=== PATIENT | male | born 1995 | race Caucasian/White ===

== ENCOUNTER 2019-01-01 11:25 | Emergency (ER) | payer BC ==
[~2019-01-01] VITALS: Ht 182.9 cm; Wt 113.6 kg
[2019-01-01 11:37] VITALS: Ht 182.9 cm; Wt 113.6 kg
[2019-01-01 12:02] LABS: APPEARANCE CLEAR (CLEAR); BILIRUBIN NEGATIVE (NEGATIVE); COLOR YELLOW (YELLOW); GLUCOSE NEGATIVE (NEGATIVE); KETONE SMALL mg/dL (NEGATIVE); NITRITE NEGATIVE (NEGATIVE); PROTEIN NEGATIVE (NEGATIVE); UROBILINOGEN NORMAL (NORMAL)
[2019-01-01 12:05] LABS: BASOPHILS 0.2 % (0-2); EOSINOPHILS 1.1 % (0-7); HEMATOCRIT 49.5 % (42.0-54.0); HEMOGLOBIN 17.4 g/dL (13.5-17.5); IMMATURE GRANULOCYTES 0.1 % (0-5); LYMPHOCYTES 23.8 % (15-50); MCH 29.9 pg (26.0-34.0); MCHC 35.2 g/dL (31.0-37.0); MCV 85.2 fL (80.0-100.0); MEAN PLATELET VOLUME 10.4 fL (7.4-10.4); MONOCYTES 7.6 % (2-11); NEUTROPHILS 67.2 % (40-80); PLATELET COUNT 317 10x3/uL (130-400); RBC 5.81 10x6/uL (4.20-6.10); RDW 12.5 % (11.5-14.5); WBC 8.4 10x3/uL (4.8-10.8)
[2019-01-01 12:16] LABS: CALC OSMOLALITY 277 mosm/kg (275-300); CALCIUM 9.4 mg/dL (8.5-10.1); CARBON DIOXIDE 25.3 mmol/L (21.0-32.0); CHLORIDE - SERUM 101 mmol/L (98-107); CREATININE - SERUM 1.1 mg/dL (0.6-1.3); GLUCOSE 110 mg/dL (74-106); POTASSIUM - SERUM 3.8 mmol/L (3.5-5.1); SODIUM 138 mmol/L (136-145); UREA NITROGEN 14 mg/dL (7-18); eGFR NON AFRICAN AMERICAN 87 mL/min (90-120)
[2019-01-01 12:21] LABS: ALBUMIN 4.9 g/dL (3.4-5.0); ALKALINE PHOSPHATASE 100 U/L (46-116); ALT (SGPT) 52 U/L (10-68); BILIRUBIN - TOTAL 0.59 mg/dL (0.2-1.3); PROTEIN - SERUM 8.3 g/dL (6.4-8.2)
[2019-01-01] MEDS ORDERED: FLUTICASONE PRO16 GM NASAL (13:48)
[2019-01-01] MEDS ORDERED: LISINOPRIL5 MG PO (13:48)
[2019-01-01 14:35] VITALS: BP 141/97
== END 2019-01-01 14:35 | disposition home or self-care (01) ==
LOC: D.ER 11:25
PROVIDERS: Family Medicine
DX: I10 Essential (primary) hypertension (principal); J32.9 Chronic sinusitis, unspecified

== ENCOUNTER 2019-01-02 23:09 | Observation (INO) | payer BC ==
[~2019-01-02] VITALS: Ht 182.9 cm; Wt 111.4 kg
[~2019-01-02 23:09] MED LIST: FLUTICASONE PRO16 GM NASAL; LISINOPRIL5 MG PO
[2019-01-02 23:34] LABS: HEMATOCRIT 48.4 % (42.0-54.0); MCH 29.3 pg (26.0-34.0); MCHC 35.1 g/dL (31.0-37.0); MCV 83.3 fL (80.0-100.0); MEAN PLATELET VOLUME 10.1 fL (7.4-10.4); PLATELET COUNT 327 10x3/uL (130-400); RBC 5.81 10x6/uL (4.20-6.10); RDW 12.8 % (11.5-14.5)
[2019-01-02 23:37] LABS: WBC 12.6 10x3/uL (4.8-10.8)
[2019-01-02 23:44] LABS: CALC OSMOLALITY 276 mosm/kg (275-300); CALCIUM 8.7 mg/dL (8.5-10.1); CARBON DIOXIDE 23.8 mmol/L (21.0-32.0); CHLORIDE - SERUM 101 mmol/L (98-107); CREATININE - SERUM 1.2 mg/dL (0.6-1.3); GLUCOSE 109 mg/dL (74-106); POTASSIUM - SERUM 3.4 mmol/L (3.5-5.1); SODIUM 138 mmol/L (136-145); UREA NITROGEN 13 mg/dL (7-18); eGFR NON AFRICAN AMERICAN 78 mL/min (90-120)
[2019-01-02 23:49] LABS: APTT 29.4 SECONDS (22.8-39.4); INR 1.06 (0.85-1.17); PROTIME 13.3 SECONDS (11.6-15.0)
[2019-01-02 23:50] LABS: D-DIMER-QUANTITATIVE < 0.27 ug/mLFEU (0.20-0.54)
[2019-01-03 00:09] LABS: ALBUMIN 4.8 g/dL (3.4-5.0); ALKALINE PHOSPHATASE 105 U/L (46-116); ALT (SGPT) 54 U/L (10-68); BILIRUBIN - TOTAL 0.62 mg/dL (0.2-1.3); CKMB 6.1 U/L (0.0-3.6); CREATINE KINASE 245 UL (21-232); MAGNESIUM - SERUM 1.9 mg/dL (1.8-2.4); PROTEIN - SERUM 8.2 g/dL (6.4-8.2)
[2019-01-03 00:14] LABS: TROPONIN-I < 0.017 ng/mL (0.000-0.060)
[2019-01-03 02:45] VITALS: BP 130/87; BMI 33.3
[2019-01-03 06:34] LABS: CREATINE KINASE 185 UL (21-232)
[2019-01-03 06:35] LABS: TROPONIN-I < 0.017 ng/mL (0.000-0.060)
[2019-01-03 07:58] VITALS: Ht 182.9 cm; Wt 111.4 kg
--- NOTE | 2019-01-03 09:09 | NUR ---
REFUSED SCD'S. PT TO DC TODAY.
[2019-01-03 09:59] VITALS: BP 137/75
--- NOTE | 2019-01-03 12:04 | NUR ---
SPOKE WTIH DR. ALVAREZ'S NURSE AND SHE STATES DR. HIDALGO WILL PUT IN DISCHARGE ORDER.
[2019-01-03] MEDS ORDERED: LISINOPRIL10 MG PO (12:28)
[2019-01-03] MEDS ORDERED: CATAPRES0.1 MG PO (12:29)
[2019-01-03 13:28] VITALS: BP 150/98
--- NOTE | 2019-01-03 14:27 | NUR ---
PT DISCHARGE INSTRUCTIONS GIVEN TO PT AND EXPLAINED. ALL QUESTIONS ANSWERED. CHART COPY SIGNED. TELEMETRY DC'D. LEFT AC 20G IV DC'D WITH CATH INTACT.
--- NOTE | 2019-01-03 14:34 | NUR ---
PT LEFT VIA WC BY VOLUNTEER ACCOMAPNIED BY AND LEFT IN PERSONAL CAR.
--- NOTE | 2019-01-08 14:07 | EC ---
PATIENT:MYAH RICHMOND DATE OF SERVICE: 01/03/19 SEX: M MEDICAL RECORD: [id number] DATE OF : [birth year] LOCATION:D.M2 D.210 AGE OF PATIENT: 23 ADMISSION DATE: 01/03/19 REFERRING PHYSICIAN: INTERPRETING PHYSICIAN: BELEN VILLARREAL MD ECHOCARDIOGRAM REPORT ECHO CHARGES 4 ECHO COMPLETE Date: 01/03/19 CLINICAL DIAGNOSIS: CHEST PAIN,HTN ECHOCARDIOGRAPHIC MEASUREMENTS (adult normal given) AC root (d.<3.7cm) 3.3 cm LV Septum d (<1.2 cm> 1.2 cm Valve Excursion 1.8 cm LV Septum (systole) 1.4 cm Left Atria (s.<4.0cm> 3.3 cm LVPW d(<1.2cm) 1.3 cm RV (d.<2.3cm) 3.8 cm LVPW (sytole) 1.7 cm LV diastole(<5.6CM) 5.7 cm MV E-F(>70mm/sec) cm LV systole 4.7 cm LVOT Diameter 1.8 cm MV exc.(>10mm) 1.9 cm Est.ejection fraction (50-75%) % DOPPLER: LVIT cm/sec A 64.0 cm/sec E 102 cm/sec LA cm/sec RVSP 34 mmHg LVOT 133 cm/sec AOP1/2T m/s Asc. Ao 155 cm/sec RVOT 90 cm/sec RA cm/sec PA 109 cm/sec AV Gradient Peak 9.63 mmHg AV Mean 5.65 mmHg AV Area 1.9 cm MV Gradient Peak 4.59 mmHg MV Mean 1.59 mmHg MV Area cm COMMENTS: Customer Marketing Assistant: Crystal ALVAREZ Analytical Chemist: 1 Dr. Villarreal TAPE# PACS Pericardial Effusion N DATE OF SERVICE: 01/03/2019 FINDINGS: 1. Left ventricular chamber size is within normal limits. Left ventricular systolic function is normal. Overall ejection fraction estimated at 55% to 60%. 2. Left atrium, right atrium, right ventricle chamber sizes are within normal limits. 3. Valvular structures have normal structure and motion. 4. Doppler interrogation reveals no significant valvular insufficiency or stenosis and pulmonary systolic pressure is estimated at 34 mmHg. ECHOCARDIOGRAM REPORT [id number] MYAH RICHMOND 5. No evidence of pericardial effusion or left ventricular thrombus. TRANSINT:[id number] Voice Confirmation ID: [id number] DOCUMENT ID: [id number] BELEN VILLARREAL MD at 1407 CC: [id number] DICTATION DATE: 01/03/19 1516 CONFIGURATION ENGINEER: 01/03/19 1707 DIS IN 01/03/19 [facility] [address] [id number]
== END 2019-01-03 14:50 | disposition home or self-care (01) ==
LOC: D.ER 23:09 → OBSVTIME 01-03 01:26 → D.M2 01-03 01:26
PROVIDERS: Emergency Medicine; ADMIT Family Medicine; ATTEND Family Medicine
DX: I16.1 Hypertensive emergency (principal); R07.9 Chest pain, unspecified; R00.0 Tachycardia, unspecified; Z82.49 Family history of ischemic heart disease and other diseases of the circulatory system

== ENCOUNTER → 2019-01-08 14:16 | Outpatient (CLI) | payer BC ==
[2019-01-03 07:58] VITALS: BMI 33.3
[~2019-01-08 14:16] MED LIST changes: +CATAPRES0.1 MG PO; +LISINOPRIL10 MG PO
--- NOTE | 2019-01-15 10:41 | ST ---
PATIENT:MYAH RICHMOND MEDICAL RECORD: [id number] SEX: M LOCATION:[facility] ORDER #: ADMISSION DATE: 01/08/19 AGE OF PATIENT: 23 REFERRING PHYSICIAN: INTERPRETING PHYSICIAN: BELEN REYEZ MD DATE OF SERVICE: 01/08/2019 PROCEDURE: Exercise stress test. He was exercised on standard Gary protocol for 9 minutes 30 seconds achieving 100% maximum target heart rate response with no EKG changes, no dysrhythmias, and no anginal symptomatology. OVERALL IMPRESSION: Negative for inducible ischemia at adequate cardiac workload. TRANSINT:[id number] Voice Confirmation ID: [id number] DOCUMENT ID: [id number] BELEN REYEZ MD at 1041 CC: ROWDY ANTONY DO [id number] DICTATION DATE: 01/10/19817 TEST BAKER: 01/11/19 0108 DEP CLI 01/08/[address] [address]
== END | disposition home or self-care (01) ==
LOC: D.HCCARDIO 14:16
PROVIDERS: ATTEND Internal Medicine Interventional Cardiology
DX: R07.9 Chest pain, unspecified (principal)